=== PATIENT | male | born 1975 | race African-American/Black ===

== ENCOUNTER 2017-08-24 09:34 | Inpatient (IN) | payer OTHER ==
[~2017-08-24] VITALS: Ht 180.3 cm; Wt 65.8 kg
--- NOTE | 2017-08-24 09:40 | NUR ---
AAOX3, CAME TO ER C/O LEFT SIDED CHEST PAIN, ABDOMINAL PAIN AND SOB FOR 3 DAYS. BLACK TARRY STOOL NOTED YESTERDAY. SKIN IS WARM AND DRY. PLACED ON THE MONITOR. PLACED ON HOSPITAL GOWN. AWAITING MD FOR EVAL.
--- NOTE | 2017-08-24 10:07 | NUR ---
RAC #20 IV ACCESS. BLOOD SAMPLE COLLECTED SENT TO LAB
[2017-08-24] MEDS ORDERED: ONDANSETRON HCL/PF 4 MG/2 ML VIAL ONE (10:11)
[2017-08-24 10:12] LABS: BASOPHILS % (AUTO) 0.4 % (0.0-2.0); EOSINOPHILS % (AUTO) 0.1 % (0.0-6.0); HEMATOCRIT 33 % (39-51); LYMPHOCYTES # (AUTO) 1.2 /CMM (0.8-4.8); LYMPHOCYTES % (AUTO) 14.9 % (20.0-44.0); MEAN CORPUSCULAR HGB CONC 34 g/dl (31.0-36.0); MEAN CORPUSCULAR VOLUME 78 fL (80-96); MONOCYTES # (AUTO) 0.4 /CMM (0.1-1.30); MONOCYTES % (AUTO) 5.3 % (2.0-12.0); NEUTROPHILS # (AUTO) 6.3 /CMM (1.8-8.9); NEUTROPHILS % (AUTO) 79.3 % (43.0-81.0); PLATELET COUNT (AUTO) 322 /CMM (150-450); RDW COEFFICIENT OF VARIATION 12.4 (11.5-15.0); RED BLOOD CELL COUNT(AUTO) 4.15 MIL/uL (4.5-6.0); WHITE BLOOD COUNT (AUTO) 7.9 K/uL (4.3-11.0)
[2017-08-24 10:22] LABS: CALCIUM, SERUM 8.3 mg/dL (8.5-10.1); CARBON DIOXIDE 26 mmol/L (21-32); CHLORIDE 100 mmol/L (98-107); CREATININE 0.9 mg/dL (0.6-1.3); GLUCOSE 142 mg/dL (74-106); POTASSIUM 4.5 mmol/L (3.5-5.1); SODIUM SERUM 131 mmol/L (136-145); UREA NITROGEN, BLOOD 39 mg/dL (7-18)
[2017-08-24 10:26] LABS: ALANINE AMINOTRANSFERASE 18 U/L (12-78); ALBUMIN 3.5 g/dL (3.4-5.0); ALKALINE PHOSPHATASE 38 U/L (46-116); ASPARTATE AMINOTRANSFERASE 15 U/L (15-37); BILIRUBIN,DIRECT 0.1 mg/dL (0.0-0.2); BILIRUBIN,TOTAL 0.7 mg/dL (0.2-1.0); TOTAL PROTEIN, SERUM 6.8 g/dL (6.4-8.2)
[2017-08-24 10:28] LABS: TROPONIN I < 0.017 ng/mL (0.00-0.056)
[2017-08-24] MEDS ORDERED: ONDANSETRON HCL/PF 4 MG/2 ML VIAL IVP ONE (10:30)
[2017-08-24] MEDS ORDERED: IV NS 0.9% 1,000 ML BAG IV ONE (10:30)
--- NOTE | 2017-08-24 10:54 | NUR ---
DR. EVA WALDEN
[2017-08-24 11:23] LABS: D-DIMER 0.19 mg/L(FEU (0.17-0.50); INR 1.03 (0.87-1.13)
--- NOTE | 2017-08-24 11:28 | NUR ---
CALLED NURSING SUP. FOR TELE BED
--- NOTE | 2017-08-24 11:52 | NUR ---
[facility] CALLED FOR A REQUEST TX TO COSMETIC MANAGER, SPOKE WITH CURTIS BENAVIDES, EKG AND FACESHEET FAXED REQUESTED
--- NOTE | 2017-08-24 12:03 | NUR ---
CALLED [facility], SPOKE WITH REGAN, PRESENTED PT, FAXED FACESHEET AND EKG TO HIM AT [phone]
--- NOTE | 2017-08-24 12:05 | NUR ---
VAULT ATTENDANT AT BEDSIDE
[2017-08-24 12:25] LABS: HEMOGLOBIN 10.4 g/dL (13.5-17.5)
--- NOTE | 2017-08-24 12:25 | NUR ---
TELE 316-2 FOR CHEST PAIN, KAREN ARMENDARIZ ADMITTING
--- NOTE | 2017-08-24 12:47 | NUR ---
CALLED BACK REGAN AT [facility] TO ALERT HIM OUR HOSPITALIST ACCEPTED PT TO STAY HERE
--- NOTE | 2017-08-24 12:56 | NUR ---
GAVE REPORT TO [facility] TELE ROOM 316 CHEST PAIN ABNORMAL EKG GI BLEED ADMITTING DR KAREN ARMENDARIZ TRANSFER VIA ACLS PROTOCOL
--- NOTE | 2017-08-24 13:00 | NUR ---
CRYSTAL SYRUP MAKERWASHERY BOSS NOTES RECEIVED PT FROM ER NURSE IN STABLE CONDITION . PT IS A/O X4. NO SOB OR ACUTE SIGNS OF DISTRESS NOTED. BREATHING IS EVEN AND UNLABORED. HE DENIES AY CHEST PAIN AT THIS TIME. HE IS SR ON THE TELE MONITOR WITH A HR OF 69. PT WILL BE ADMITTED FOR POSSIBLE GI BLEED ALONG WITH CHEST PAIN. HE WAS SEEN BY DR. LIMA IN ER WHO STATED THAT PT IS CLEARED FOR SCOPE PROCEDURE. VITAL SIGNS STABLE. IV TO RIGHT AC NOTED TO BE PATENT AND INTACT. NO REDNESS OR SIGNS OF INFILTRATION NOTED. PT ORIENTED TO ROOM AND USE OF CALL LIGHT. PLAN OF CARE DISCUSSED WITH PT. BED IN LOW LOCKED POSITION, SIDE RAILS UP X2, CALL LIGHT WITHIN REACH. WILL CONTINUE TO MONITOR
[2017-08-24 13:42] LABS: MAGNESIUM 1.6 mg/dL (1.8-2.4); PHOSPHORUS 2.4 mg/dL (2.5-4.9)
[2017-08-24 13:53] LABS: THYROID STIMULATING HORMONE 1.461 uIU/mL (0.358-3.74)
--- NOTE | 2017-08-24 15:44 | NUR ---
PT TAKEN DOWN FOR EGD PROCEDURE IN STABLE CONDITION. CONSENTS SIGNED BY PT. NPO STATUS MAINTAINED SINCE ADMISSION. IV REMAINS PATENT AND INTACT
[2017-08-24 16:00] VITALS: BP 128/85
[2017-08-24] MEDS ORDERED: K PHOS NEUTRAL 250 MG TABLET PO ONE (16:00)
[2017-08-24] MEDS: Magnesium 1GM/D5W 100ML PREMIX 100 ML IV SCH ×4 (17:04→21:16)
--- NOTE | 2017-08-24 17:10 | NUR ---
GEOMETRY PROFESSOR NOTES PT BACK FROM EGD PROCEDURE IN STABLE CONDITION. ORDERS FROM DR. NUNSE NOTED. PER MD "GASTRITIS WAS SEEN, AND DIET MAY BE ADVANCE TOLERATED". WILL CONTINUE TO MONITOR
[2017-08-24] MEDS ORDERED: PANTOPRAZOLE 40 MG VIAL IV SCH (18:00)
[2017-08-24] MEDS ORDERED: PANTOPRAZOLE 40 MG TABLET.DR PO SCH (18:06)
--- NOTE | 2017-08-24 18:27 | NUR ---
GRINDER WATCH PARTS NOTES: PROTONIX ADMINISTRATION RODY THE CENTRAL OFFICE MECHANIC GAVE A VERBAL ORDER TO GIVE THE PT A ONE TIME DOSE OF PROTONIX 40M IV TODAY AND BEGIN PROTONIX 40MG IV BID STARTING TOMORROW.
--- NOTE | 2017-08-24 18:35 | NUR ---
WINTER SPORTS MANAGER CLOSING NOTES PT REMAINS IN STABLE CONDITION. ALL NEEDS WERE MET DURING SHIFT AND ORDERS CARRIED OUT ACCORDINGLY. ALL DUE MEDS GIVEN. ELECTROLYTES REPLACED WITH THE EXCEPTION OF THE LAST 2 G OF MAG WHICH WILL BE ENDORSED TO THE NIGHTSHIFT NURSE TO COMPLETE. IV REMAINS PATENT AND INTACT. RESULTS OF EGD DISCUSSED IN DETAIL WITH BY RODY MELCHOR PLYWOOD LAYUP LINE CORE FEEDER. VITALS REMAIN STABLE AFTER PROCEDURE. HE REAMINS SR ON THE TELE MONITOR WITH NO COMPLAINTS OF CHEST PAIN AT THIS TIME. WILL ENDORSE TO NIGHTSHIFT NURSE FOR RAFA
[2017-08-24 18:53] LABS: HEMATOCRIT 27 % (39-51); MEAN CORPUSCULAR HGB CONC 34 g/dl (31.0-36.0); MEAN CORPUSCULAR VOLUME 79 fL (80-96); PLATELET COUNT (AUTO) 235 /CMM (150-450); RED BLOOD CELL COUNT(AUTO) 3.37 MIL/uL (4.5-6.0); WHITE BLOOD COUNT (AUTO) 6.6 K/uL (4.3-11.0)
--- NOTE | 2017-08-24 19:40 | NUR ---
GRADES 7 8 TUTOR NOTE RECEIVED PATIENT FROM DAY SHIFT, PATIENT IS ALERT AND ORIENTEDX4, DENIES RESPIRATORY DISTRESS OR PAIN AT THIS TIME. IV ON RIGHT AC IS PATENT AND INTACT, MG IS RUNNING. TELE SR 69. SRX2, BED IN LOW POSITION, CALL LIGHT WITHIN REACH, WILL CONTINUE TO MONITOR PATIENT.
[2017-08-24 20:00] VITALS: BP 110/65
[2017-08-24] MEDS ORDERED: PANTOPRAZOLE 40 MG VIAL IV ONE (20:00)
[2017-08-25] VITALS: BP 100/60
[2017-08-25 02:08] LABS: HEMATOCRIT 25 % (39-51); HEMOGLOBIN 8.6 g/dL (13.5-17.5); MEAN CORPUSCULAR HGB CONC 34 g/dl (31.0-36.0); MEAN CORPUSCULAR VOLUME 79 fL (80-96); PLATELET COUNT (AUTO) 241 /CMM (150-450); RED BLOOD CELL COUNT(AUTO) 3.22 MIL/uL (4.5-6.0)
[2017-08-25 04:27] VITALS: BP 96/58
--- NOTE | 2017-08-25 06:27 | NUR ---
PHONE CIRCUIT OPERATOR NOTE PATIENT IS RESTING IN BED COMFORTABLY, NO ACUTE DISTRESS NOTED THROUGHOUT THE SHIFT. WILL ENDORSE TO DAY SHIFT NURSE FOR RAFA.
--- NOTE | 2017-08-25 07:10 | NUR ---
RN OPEN NOTES RECEIVED REPORT FROM CABLE COVERER NURSE. PATIENT IS BED WITH HIS EYES CLOSED. EASILY AROUSED TO LIGHT TOUCH. NO SIGNS AND SYMPTOMS OF DISTRESS. BED IN LOW POSITION, LOCKED AND TWO SIDE RAILS ARE UP. CALL LIGHT WITHIN REACH FOR SAFETY. WILL CONTINUE TO ASSESS AND MONITOR PATIENT.
[2017-08-25] MEDS ORDERED: PANTOPRAZOLE 40 MG TABLET.DR PO SCH (07:30)
[2017-08-25 08:00] VITALS: BP 94/48
[2017-08-25] MEDS ORDERED: PANTOPRAZOLE 40 MG VIAL IV SCH (09:00)
[2017-08-25] MEDS ORDERED: IV NS 0.9% 1,000 ML IV PRN (09:16)
[2017-08-25] MEDS: NEUTRA PHOS 1 POWD.PACKET PO SCH ×2 (09:30→10:10)
[2017-08-25 09:53] LABS: BASOPHILS % (AUTO) 0.2 % (0.0-2.0); EOSINOPHILS % (AUTO) 0.4 % (0.0-6.0); HEMATOCRIT 25 % (39-51); HEMOGLOBIN 8.4 g/dL (13.5-17.5); LYMPHOCYTES # (AUTO) 1.5 /CMM (0.8-4.8); LYMPHOCYTES % (AUTO) 31.5 % (20.0-44.0); MEAN CORPUSCULAR HGB CONC 33 g/dl (31.0-36.0); MEAN CORPUSCULAR VOLUME 80 fL (80-96); MONOCYTES # (AUTO) 0.3 /CMM (0.1-1.30); MONOCYTES % (AUTO) 6.9 % (2.0-12.0); NEUTROPHILS # (AUTO) 2.9 /CMM (1.8-8.9); PLATELET COUNT (AUTO) 222 /CMM (150-450); RDW COEFFICIENT OF VARIATION 13.5 (11.5-15.0); RED BLOOD CELL COUNT(AUTO) 3.15 MIL/uL (4.5-6.0); WHITE BLOOD COUNT (AUTO) 4.8 K/uL (4.3-11.0)
[2017-08-25] MEDS ORDERED: POTASSIUM CHLORIDE 20 MEQ TAB.PRT.SR PO SCH (10:00)
[2017-08-25 10:11] LABS: BILIRUBIN,TOTAL 0.4 mg/dL (0.2-1.0); CREATININE 0.9 mg/dL (0.6-1.3); MAGNESIUM 2.4 mg/dL (1.8-2.4); PHOSPHORUS 2.4 mg/dL (2.5-4.9); POTASSIUM 4.1 mmol/L (3.5-5.1); TOTAL PROTEIN, SERUM 5.7 g/dL (6.4-8.2)
--- NOTE | 2017-08-25 10:11 | NUR ---
PER DR ARMENDARIZ AND DR LIMA, HOLD NEUTRE PHOS AND POTASSIUM
[2017-08-25] MEDS ORDERED: IV NS 0.9% 1,000 ML IV SCH (10:18)
[2017-08-25] MEDS ORDERED: PANT40TA2 PO (10:18)
[2017-08-25] MEDS ORDERED: Ergocalciferol (Vitamin D 2) PO (10:18)
[2017-08-25] MEDS ORDERED: SUCR1ORA4 PO (10:18)
[2017-08-25] MEDS ORDERED: ERGOCALCIFEROL (VITAMIN D 2) 50,000 UNIT CAPSULE PO SCH (10:30)
--- NOTE | 2017-08-25 15:15 | NUR ---
PCB DESIGN ENGINEER NOTES DISCHARGE ORDERS RECEIVED AND CARRIED OUT. PATIENT IS LEAVING IN A STABLE CONDITION. NO SIGNS AND SYMPTOMS OF DISTRESS OR PAIN. ALL DISCHARGE INSTRUCTION EXPLAINED TO PATIENT AND PATIENT VERBALIZED UNDERSTANDING. NEW PRESCRIPTIONS GAVE TO PATIENT. ALL PERSONAL BELONGING WITH PATIENT AT TIME OF DISCHARGE. PATIENT SIGNED BOTH BELONGING LIST AND DISCHARGE INSTRUCTION; BOTH FORMS PLACED IN THE CHART. IV SITE REMOVED. ID BAND REMOVED. PATIENT PICKED UP BY HIS VIA A PRIVATE CAR. MANAV Dey, ESCORTED PATIENT TO MAIN LOBBY. NO NEW CONCERNS IDENTIFIED UPON DISCHARGE.
== END 2017-08-25 15:20 | disposition home or self-care (01) | DRG 241 ==
LOC: ER 09:36 → TELE 12:47 → MED 08-25 09:48
PROVIDERS: ADMIT Nurse Practitioner Acute Care; ATTEND Nurse Practitioner Acute Care
PROC: 0DB68ZX Excision of Stomach, Via Natural or Artificial Opening Endoscopic, Diagnostic (ICD-10-PCS; principal; 2017-08-24 15:45)
DX: K25.4 Chronic or unspecified gastric ulcer with hemorrhage (principal); E87.1 Hypo-osmolality and hyponatremia; N19 Unspecified kidney failure; I10 Essential (primary) hypertension; E83.42 Hypomagnesemia; E83.39 Other disorders of phosphorus metabolism; D62 Acute posthemorrhagic anemia; K29.70 Gastritis, unspecified, without bleeding; R94.31 Abnormal electrocardiogram [ECG] [EKG]; R07.9 Chest pain, unspecified; E55.9 Vitamin D deficiency, unspecified; D50.9 Iron deficiency anemia, unspecified
CPT/HCPCS: 36415; 71045-TC; 80048-TC; 80053-TC; 80061-TC; 80076-TC; 82306; 82728-TC; 83540-TC; 83735-TC; 84100-TC; 84439-TC; 84443-TC; 84484-TC; 85025-TC; 85027-TC; 85378-TC; 85730-TC; 86850-TC; 87081-TC; 88305-TC; 88313-TC; 88342; 93307-TC; A4606; C9113; J2405; J2704; J3475; J3490; J7030; J7050; Z7610

== ENCOUNTER 2019-02-14 12:18 | Emergency (ER) | payer OTHER ==
[~2019-02-14] VITALS: Ht 180.3 cm; Wt 68.0 kg
[~2019-02-14 12:18] MED LIST: Ergocalciferol (Vitamin D 2) PO; PANT40TA2 PO; SUCR1ORA4 PO
[2019-02-14 12:30] VITALS: BP 124/72
[2019-02-14] MEDS ORDERED: DIAZEPAM 5 MG TABLET ONE (12:56)
[2019-02-14] MEDS ORDERED: DIAZEPAM 10 MG TABLET PO ONE (13:00)
[2019-02-14] MEDS ORDERED: DIAZEPAM 5 MG/ML 2 ML DISP.SYRIN IM ONE (13:00)
--- NOTE | 2019-02-14 13:00 | NUR ---
Patient discharged to home in stable condition. Written and verbal after care instructions given. Patient verbalizes understanding of instruction.
== END 2019-02-14 13:00 | disposition home or self-care (01) ==
LOC: ER 12:28
DX: S16.1XXA Strain of muscle, fascia and tendon at neck level, initial encounter (principal); I10 Essential (primary) hypertension; Z79.899 Other long term (current) drug therapy; X58.XXXA Exposure to other specified factors, initial encounter; Y93.89 Activity, other specified; Y92.89 Other specified places as the place of occurrence of the external cause; Y99.8 Other external cause status

== ENCOUNTER 2020-04-16 15:39 | Emergency (ER) | payer OTHER ==
[~2020-04-16] VITALS: Ht 182.9 cm; Wt 74.8 kg
--- NOTE | 2020-04-16 16:39 | NUR ---
pt rec;d to er c/o pain has hx of ulcers no n/v no blood in stool per pt iv started 20g rt ac labs sent to labAWAITING EVALUATION BY ER PROVIDER.
[2020-04-16] MEDS: FAMOTIDINE/PF INJ 20 MG/2 ML VIAL IV ONE (16:40)
[2020-04-16] MEDS ORDERED: FAMOTIDINE/PF INJ 20 MG/2 ML VIAL IV ONE (16:42)
[2020-04-16 17:39] LABS: BASOPHILS % (AUTO) 0.4 % (0.0-2.0); EOSINOPHILS % (AUTO) 0.7 % (0.0-6.0); HEMATOCRIT 41 % (39-51); HEMOGLOBIN 13.9 g/dL (13.5-17.5); LYMPHOCYTES # (AUTO) 1.8 /CMM (0.8-4.8); LYMPHOCYTES % (AUTO) 43.4 % (20.0-44.0); MEAN CORPUSCULAR HGB CONC 34 g/dl (31.0-36.0); MEAN CORPUSCULAR VOLUME 82 fL (80-96); MONOCYTES # (AUTO) 0.4 /CMM (0.1-1.30); MONOCYTES % (AUTO) 10.7 % (2.0-12.0); NEUTROPHILS # (AUTO) 1.8 /CMM (1.8-8.9); NEUTROPHILS % (AUTO) 44.8 % (43.0-81.0); PLATELET COUNT (AUTO) 236 /CMM (150-450); RED BLOOD CELL COUNT(AUTO) 5.07 MIL/uL (4.5-6.0); WHITE BLOOD COUNT (AUTO) 4.1 K/uL (4.3-11.0)
[2020-04-16 17:49] LABS: CALCIUM, SERUM 8.4 mg/dL (8.5-10.1); CARBON DIOXIDE 31 mmol/L (21-32); CHLORIDE 103 mmol/L (98-107); GLUCOSE 93 mg/dL (74-106); POTASSIUM 4.1 mmol/L (3.5-5.1); SODIUM SERUM 138 mmol/L (136-145); UREA NITROGEN, BLOOD 15 mg/dL (7-18)
[2020-04-16 18:07] LABS: ALANINE AMINOTRANSFERASE 23 U/L (12-78); ALBUMIN 3.6 g/dL (3.4-5.0); ALKALINE PHOSPHATASE 64 U/L (46-116); ASPARTATE AMINOTRANSFERASE 21 U/L (15-37); BILIRUBIN,DIRECT 0.1 mg/dL (0.0-0.2); BILIRUBIN,TOTAL 0.5 mg/dL (0.2-1.0); TOTAL PROTEIN, SERUM 7.5 g/dL (6.4-8.2)
[2020-04-16 18:45] VITALS: BP 127/83
--- NOTE | 2020-04-16 18:46 | NUR ---
IV removed. Catheter intact and site benign. Pressure and 4x4 applied to site. No bleeding noted.Patient discharged to home in stable condition. Written and verbal after care instructions given. Patient verbalizes understanding of instruction.
== END 2020-04-16 18:46 | disposition home or self-care (01) ==
LOC: ER 15:52
DX: R07.89 Other chest pain (principal); I10 Essential (primary) hypertension; Z79.899 Other long term (current) drug therapy
CPT/HCPCS: 36415; 71045; 80048; 80076; 83690; 84484; 85025; 93005 ×2; 96374; 99285; J3490

== ENCOUNTER → 2021-05-08 | Emergency (ER) | payer OTHER ==
[~2021-05-08] VITALS: Ht 175.3 cm; Wt 65.8 kg
[~2021-05-08] MED LIST changes: +DICL50TA9 PO; +KETOROLAC TROMETHAMINE 15 MG/ML VIAL ONE; +KETOROLAC TROMETHAMINE INJ 30 MG/ML VIAL IM ONE
--- NOTE | 2021-05-08 01:30 | NUR ---
BIBSECLIFFORD C/O RIGHT KNEE PAIN X 3 DAYS. PATIENT IS AAO X 4, BREATHING EVEN AND UNLABORED. PATIENT STATES NO RELIEF DESPITE TAKING ADVIL. PT SEEN AND EXAMINED BY DR GARCIA. PT ATTACHED TO MONITOR AND PULSE OX. WILL CONT TO MONITOR AND CARRY OUT MD PEARSON.
--- NOTE | 2021-05-08 02:34 | NUR ---
Patient discharged to home in stable condition. Written and verbal after care instructions given. Patient verbalizes understanding of instruction. Mr Mast is ambulatory with a steady gait
[2021-05-08 02:35] VITALS: BP 119/66
== END | disposition home or self-care (01) ==
LOC: ER 00:48
DX: S80.01XA Contusion of right knee, initial encounter (principal); I10 Essential (primary) hypertension; Z98.890 Other specified postprocedural states; Z79.899 Other long term (current) drug therapy; X58.XXXA Exposure to other specified factors, initial encounter; Y93.89 Activity, other specified; Y92.89 Other specified places as the place of occurrence of the external cause; Y99.8 Other external cause status
CPT/HCPCS: 73564; 96372; 99283; J1885